=== PATIENT | female | born 1990 | race Native Hawaiian/Other Pacific Islander ===

== ENCOUNTER 2023-03-25 10:08 | Outpatient (CLI) | payer OTHER | END 2023-03-25 18:55 | disposition home or self-care (01) | LOC: US 10:08 | PROVIDERS: ATTEND Family Medicine | DX: E03.8 Other specified hypothyroidism (principal); N18.31 Chronic kidney disease, stage 3a; E04.2 Nontoxic multinodular goiter; I16.0 Hypertensive urgency; E79.0 Hyperuricemia without signs of inflammatory arthritis and tophaceous disease ==

== ENCOUNTER 2023-03-30 23:50 | Emergency (ER) | payer OTHER ==
[~2023-03-30] VITALS: Ht 157.5 cm; Wt 80.7 kg
[2023-03-31] VITALS: TEMP 98.1
[2023-03-31 02:52] VITALS: BP 147/75
== END 2023-03-31 02:52 | disposition home or self-care (01) ==
LOC: ED 23:50
DX: L03.113 Cellulitis of right upper limb (principal); W01.0XXA Fall on same level from slipping, tripping and stumbling without subsequent striking against object, initial encounter
CPT/HCPCS: 96372; 99283; J1170; J2550

== ENCOUNTER 2023-04-15 08:41 | Outpatient (CLI) | payer OTHER | END 2023-04-15 22:01 | disposition home or self-care (01) | LOC: US 08:41 | PROVIDERS: ATTEND Family Medicine | DX: N18.9 Chronic kidney disease, unspecified (principal) ==